=== PATIENT | female | born 1980 | race Caucasian/White ===

== ENCOUNTER 2018-02-05 04:26 | Emergency (ER) | payer BC ==
[2018-02-05 04:38] VITALS: BMI 26.6
[2018-02-05] MEDS ORDERED: SODIUM CHLORIDE 1,000 ML IV STA ×2 (04:45→06:05)
--- NOTE | 2018-02-05 05:00 | PDOC ---
History of Present Illness - General Chief Complaint: Nausea/Vomiting Stated Complaint: DIABETIC/VOMITING/SYNCOPY Time Seen by Provider: 02/05/18 04:35 - History of Present Illness Initial Comments: 02/05/18 05:00 The patient is a 37 year old female with history of type I DM who presents to the ED complaining of vomiting and syncope that began tonight around midnight. The patient states she was at work when she began to feel lightheaded. She subsequently developed nausea and had several episodes of nonbloody nonbilious vomiting. She states she sat down in a chair but then "passed out". Pt denies head trauma or injury. She states her blood sugar was normal when she checked this morning. However, she states that she did not use any of her humalog today and only took her Lantus in the morning. She denies eating anything today but states she had a kala david. The patient denies fever, chills, or recent illness. She denies abdominal pain, constipation, or diarrhea. She denies chest pain or shortness of breath. She does endorse mild headache, no blurred vision, numbness or tingling. She does endorse frequency of urination, denies dysuria or hematuria. Past History - Past Medical History Allergies/Adverse Reactions: Allergies Allergy/AdvReac Type Severity Reaction Status Date / Time No Known Drug Allergies Allergy Verified 02/05/18 04:36 Home Medications: Ambulatory Orders Diazepam [Valium] 5 mg PO ONCE 02/05/18 Insulin Glargine,Hum.rec.anlog [Lantus] 30 unit SQ AM 02/05/18 Insulin Glargine,Hum.rec.anlog [Lantus] 40 unit SQ HS 02/05/18 Venlafaxine HCl ER [Effexor Xr -] 150 mg PO DAILY 02/05/18 Anemia: No Asthma: No Cancer: No Cardiac Disorders: No CVA: No COPD: No CHF: No Dementia: No Diabetes: Yes (iddm) GI Disorders: No Disorders: No HTN: No Hypercholesterolemia: No Liver Disease: No Psychiatric Problems: Yes (anxiety/depression) Seizures: No Thyroid Disease: No - Surgical History Cardiac Surgery: Yes (RIGHT CATARCT 06/01/12) - Suicide/Smoking/Psychosocial Hx Smoking Status: No Smoking History: Never smoked Years of Tobacco Use: 8 Have you smoked in the past 12 months: No Number of Cigarettes Smoked Daily: 0 If you are a former smoker, when did you quit?: 10 YRS AGO Information on smoking cessation initiated: No Hx Alcohol Use: No Drug/Substance Use Hx: No Substance Use Type: None Hx Substance Use Treatment: No Review of Systems - Review of Systems Comments:: 02/05/18 05:01 "GENERAL/CONSTITUTIONAL: +Generalized weakness. No fever or chills. HEAD, EYES, EARS, NOSE AND THROAT: No change in vision. No ear pain or discharge. No sore throat. CARDIOVASCULAR: +Lightheadedness, LOC. No chest pain or shortness of breath. RESPIRATORY: No cough, wheezing, or hemoptysis. GASTROINTESTINAL: +Vomiting. No abdominal pain, diarrhea, or constipation. GENITOURINARY: No dysuria, frequency, or change in urination. MUSCULOSKELETAL: No joint or muscle swelling or pain. No neck or back pain. SKIN: No rash NEUROLOGIC: +Headache. No vertigo, or change in strength/sensation. ENDOCRINE: No increased thirst. No abnormal weight change. HEMATOLOGIC/LYMPHATIC: No anemia, easy bleeding, or history of blood clots. ALLERGIC/IMMUNOLOGIC: No hives or skin allergy. " *Physical Exam - Vital Signs Last Vital Signs Temp Pulse Resp BP Pulse Ox 98.1 F 113 H 20 133/88 96 02/05/18 04:36 02/05/18 04:36 02/05/18 04:36 02/05/18 04:36 02/05/18 04:36 - Physical Exam Comments: 02/05/18 05:02 "GENERAL: Awake, alert, and fully oriented, in no acute distress. HEAD: No signs of trauma EYES: PERRLA, EOMI, sclera anicteric, conjunctiva clear ENT: Auricles normal inspection, hearing grossly normal, nares patent, oropharynx clear without exudates. Moist mucosa NECK: Nontender, no stepoffs, Normal ROM, supple, no lymphadenopathy, JVD, or masses LUNGS: Breath sounds equal, clear to auscultation bilaterally. No wheezes, and no crackles HEART: Regular rate and rhythm, normal S1 and S2, no murmurs, rubs or gallops ABDOMEN: Soft, nontender, normoactive bowel sounds. No guarding, no rebound. No masses EXTREMITIES: Normal range of motion, no edema. No clubbing or cyanosis. No cords, erythema, or tenderness NEUROLOGICAL: Cranial nerves II through XII intact. 5/5 strength and sensation in all extremities, Normal speech, normal gait, normal cerebellar function SKIN: Warm, Dry, normal turgor, no rashes or lesions noted. " ED Treatment Course - LABORATORY CBC & Chemistry Diagram: 02/05/18 05:00 02/05/18 08:00 Medical Decision Making - Medical Decision Making 02/05/18 04:55 37 F with DM presenting to ED with vomiting and syncopal episode. Pt tachycardic in ED but afebrile, BP stable. Will evaluate for DKA/HHS. Pt with no EKG findings suspicious for cardiac syncope. Pt also with mild headache, likely 2/2 volume depletion. No red flags for meningitis or SAH. No history or clinical signs of head trauma. - Labs, ketones, VBG - UA - 1L NS bolus - Tylenol 02/05/18 06:06 Labs notable for glucose 500. Acetone 1+. AG 13. Pt likely with very mild DKA. 7u insulin IV and additional 1L of NS ordered. Will defer insulin gtt for now, as anion gap is almost completely closed. Will recheck lytes after insulin and IVF. Pt signed out to oncoming attending at 7AM, pending repeat labwork and re- evaluation. Case discussed in detail with oncoming Emergency Physician including history, physical exam and ancillary studies. Oncoming Emergency Physician has assumed care for the patient and will complete the evaluation and treatment. Patient is aware of the plan. *DC/Admit/Observation/Transfer Diagnosis at time of Disposition: Hyperglycemia - Discharge Dispostion Disposition: HOME Condition at time of disposition: Good - Referrals - Patient Instructions Printed Discharge Instructions: DI for Hyperglycemia -- Adult Additional Instructions: return to the ED for severe nausea and vomiting, lightheadness or dizziness, passing out, other new or worsening symptoms. Make sure that you follow up with your doctor, and that you take your insulin. - Post Discharge Activity
[2018-02-05] MEDS ORDERED: ACETAMINOPHEN 1000 MG/100 ML VIAL (NON FORMULARY) IVPB ONE (05:02)
[2018-02-05 05:13] LABS: BASO % 0.6 % (0-2.0); EOS % 0.1 % (0-4.5); HEMATOCRIT 40.2 % (32.4-45.2); HEMOGLOBIN 13.1 GM/dL (10.7-15.3); LYMPH % 9.8 % (8-40); MCH 27.5 pg (25.7-33.7); MCHC 32.7 g/dl (32.0-36.0); MEAN PLT VOLUME 8.7 fl (7.5-11.1); MONO % 4.4 % (3.8-10.2); NEUT % 85.1 % (42.8-82.8); PLATELET COUNT 291 K/MM3 (134-434); RBC 4.78 M/mm3 (3.60-5.2); RDW 13.4 % (11.6-15.6); VENOUS PH 7.34 (7.32-7.42); WHITE BLOOD COUNT 12.1 K/mm3 (4.0-10.0)
[2018-02-05 05:14] LABS: VENOUS PC02 42.9 mmHg (38-52); VENOUS PO2 33.4 mmHg (28-48)
[2018-02-05] MEDS ORDERED: ACETAMINOPHEN INJECTION 100 ML IVPB ONE (05:17)
[2018-02-05 05:38] LABS: ALBUMIN 4.3 g/dl (3.4-5.0); ANION GAP 13 (8-16); BILIRUBIN,TOTAL 1.4 mg/dL (0.2-1.0); BLOOD UREA NITROGEN 13 mg/dL (7-18); CALCIUM 9.3 mg/dL (8.5-10.1); CHLORIDE 96 mmol/L (98-107); CO2 24 mmol/L (21-32); POTASSIUM 4.6 mmol/L (3.5-5.1); SGOT/AST 10 U/L (15-37); SGPT/ALT 22 U/L (12-78); SODIUM 133 mmol/L (136-145); TOT PROT 8.2 g/dl (6.4-8.2)
[2018-02-05 05:39] LABS: ALK PHOS 107 U/L (45-117)
[2018-02-05 05:57] LABS: GLUCOSE,RANDOM 505 mg/dL (74-106)
[2018-02-05] MEDS ORDERED: INSULIN REGULAR HUMAN 100 UNITS/ML *VIAL IVPUSH ONE (06:04)
[2018-02-05 06:07] LABS: ACETONE SERUM POSITIVE SMALL 1+ (NEGATIVE)
[2018-02-05] MEDS ORDERED: INSULIN REGULAR HUMAN 100 UNITS/ML *VIAL ONE (06:11)
[2018-02-05] MEDS ORDERED: METOCLOPRAMIDE HCL INJECTION 10 MG/2 ML VIAL IVPB ONE (06:28)
[2018-02-05] MEDS ORDERED: METOCLOPRAMIDE HCL INJECTION 10 MG/2 ML VIAL ONE (06:41)
[2018-02-05] MEDS ORDERED: SODIUM CHLORIDE 0.9% 500 ML INFUS.BAG IV ONE (08:47)
[2018-02-05 10:13] LABS: URINE APPEARANCE CLOUDY; URINE BILIRUBIN NEGATIVE (<2.0 mg/dL); URINE COLOR LTYELLOW; URINE GLUCOSE (UA) 3+ (NEGATIVE); URINE KETONE 2+ (NEGATIVE); URINE LEUK ESTERASE NEGATIVE (NEGATIVE); URINE NITRITE NEGATIVE (NEGATIVE); URINE PROTEIN NEGATIVE (NEGATIVE); URINE UROBILINOGEN NEGATIVE mg/dL (0.2-1.0)
[2018-02-05 10:14] LABS: BLOOD UREA NITROGEN 10 mg/dL (7-18)
[2018-02-05 10:22] LABS: HCG,QUALITATIVE URINE NEGATIVE
[2018-02-05 10:37] LABS: ALBUMIN 3.6 g/dl (3.4-5.0); ALK PHOS 89 U/L (45-117); ANION GAP 9 (8-16); BILIRUBIN,TOTAL 1.3 mg/dL (0.2-1.0); CALCIUM 8.2 mg/dL (8.5-10.1); CHLORIDE 102 mmol/L (98-107); CO2 23 mmol/L (21-32); CREATININE 0.7 mg/dL (0.55-1.02); GLUCOSE,RANDOM 254 mg/dL (74-106); POTASSIUM 4.3 mmol/L (3.5-5.1); SGOT/AST 9 U/L (15-37); SGPT/ALT 17 U/L (12-78); SODIUM 134 mmol/L (136-145); TOT PROT 7.1 g/dl (6.4-8.2)
--- NOTE | 2018-02-05 11:14 | PDOC ---
*Physical Exam - Vital Signs Last Vital Signs Temp Pulse Resp BP Pulse Ox 98.1 F 96 H 16 91/55 99 02/05/18 04:36 02/05/18 07:54 02/05/18 07:54 02/05/18 07:54 02/05/18 07:54 ED Treatment Course - LABORATORY CBC & Chemistry Diagram: 02/05/18 05:00 02/05/18 08:00 - ADDITIONAL ORDERS Additional order review: Laboratory Results 02/05/18 02/05/18 02/05/18 10:04 08:45 08:00 VBG pH POC VBG pCO2 POC VBG pO2 Mixed VBG HCO3 Sodium 134 L Potassium 4.3 Chloride 102 Carbon Dioxide 23 Anion Gap 9 BUN 10 Creatinine 0.7 Creat Clearance w eGFR > 60 POC Glucometer [phone] Random Glucose 254 H Calcium 8.2 L Total Bilirubin 1.3 H AST 9 L ALT 17 Alkaline Phosphatase 89 Creatine Kinase Troponin I Total Protein 7.1 Albumin 3.6 Lipase Urine Color Ltyellow Urine Appearance Cloudy Urine pH 5.0 Ur Specific Prentice 1.025 Urine Protein Negative Urine Glucose (UA) 3+ H Urine Ketones 2+ H Urine Blood Negative Urine Nitrite Negative Urine Bilirubin Negative Urine Urobilinogen Negative Ur Leukocyte Esterase Negative Urine HCG, Qual Negative Acetone, Qual 02/05/18 02/05/18 02/05/18 05:00 05:00 05:00 VBG pH 7.34 POC VBG pCO2 42.9 POC VBG pO2 33.4 Mixed VBG HCO3 22.5 Sodium 133 L Potassium 4.6 Chloride 96 L Carbon Dioxide 24 Anion Gap 13 BUN 13 Creatinine 1.0 Creat Clearance w eGFR > 60 POC Glucometer Random Glucose 505 H* Calcium 9.3 Total Bilirubin 1.4 H D AST 10 L ALT 22 Alkaline Phosphatase 107 Creatine Kinase Troponin I Total Protein 8.2 Albumin 4.3 Lipase 56 L Urine Color Urine Appearance Urine pH Ur Specific Prentice Urine Protein Urine Glucose (UA) Urine Ketones Urine Blood Urine Nitrite Urine Bilirubin Urine Urobilinogen Ur Leukocyte Esterase Urine HCG, Qual Acetone, Qual Positive small 1+ H 02/05/18 05:00 VBG pH POC VBG pCO2 POC VBG pO2 Mixed VBG HCO3 Sodium Potassium Chloride Carbon Dioxide Anion Gap BUN Creatinine Creat Clearance w eGFR POC Glucometer Random Glucose Calcium Total Bilirubin AST ALT Alkaline Phosphatase Creatine Kinase 45 Troponin I < 0.02 Total Protein Albumin Lipase Urine Color Urine Appearance Urine pH Ur Specific Prentice Urine Protein Urine Glucose (UA) Urine Ketones Urine Blood Urine Nitrite Urine Bilirubin Urine Urobilinogen Ur Leukocyte Esterase Urine HCG, Qual Acetone, Qual 02/05/18 02/05/18 08:45 05:00 RBC 4.78 MCV 84.0 MCHC 32.7 RDW 13.4 MPV 8.7 Neutrophils % 85.1 H D Lymphocytes % 9.8 D Monocytes % 4.4 Eosinophils % 0.1 D Basophils % 0.6 POC Glucometer [phone] - Medications Given in the ED: ED Medications Discontinued Medications Generic Name Dose Route Start Last Admin Trade Name Freq PRN Reason Stop Dose Admin Acetaminophen 1,000 mg 02/05/18 05:02 02/05/18 05:28 Ofirmev Injection - IVPB 02/05/18 05:03 1,000 mg ONCE ONE Administration Sodium Chloride 1,000 mls @ 1,000 mls/hr 02/05/18 04:45 02/05/18 05:10 Normal Saline - IV 02/05/18 05:44 1,000 mls/hr ASDIR STA Administration Sodium Chloride 1,000 mls @ 1,000 mls/hr 02/05/18 06:05 02/05/18 06:16 Normal Saline - IV 02/05/18 07:04 1,000 mls/hr ASDIR STA Administration Insulin Human Regular 7 units 02/05/18 06:04 02/05/18 06:15 Novolin R Vial *For Ivpush Or Iv Drip Only* IVPUSH 02/05/18 06:05 7 unit ONCE ONE Administration Metoclopramide HCl 10 mg 02/05/18 06:28 02/05/18 06:45 Reglan Injection - IVPB 02/05/18 06:29 10 mg ONCE ONE Administration Sodium Chloride 1,000 ml 02/05/18 08:47 02/05/18 09:01 Normal Saline - IV 02/05/18 08:48 1,000 ml ONCE ONE Administration Medical Decision Making - Medical Decision Making 02/05/18 11:11 Pt signed out by Dr. Marino pending a repeat chemistry to evaluate for DKA after Iv insulin and hydration. Labs show no gap and improved hyperglycemia. Will discharge home. *DC/Admit/Observation/Transfer Diagnosis at time of Disposition: Hyperglycemia - Discharge Dispostion Disposition: HOME Condition at time of disposition: Good Decision to Admit order: No - Referrals - Patient Instructions Printed Discharge Instructions: DI for Hyperglycemia -- Adult Additional Instructions: return to the ED for severe nausea and vomiting, lightheadness or dizziness, passing out, other new or worsening symptoms. Make sure that you follow up with your doctor, and that you take your insulin. - Post Discharge Activity
[2018-02-05 11:16] VITALS: BP 98/72; PULSE 93; TEMP 98.6
--- NOTE | 2018-02-05 13:26 | EKG ---
Test Reason : Blood Pressure : / mmHG Vent. Rate : 105 BPM Atrial Rate : 105 BPM P-R Int : 168 ms QRS Dur : 088 ms QT Int : 342 ms P-R-T Axes : 074 077 037 degrees QTc Int : 452 ms SINUS TACHYCARDIA OTHERWISE NORMAL ECG WHEN COMPARED WITH ECG OF 21-MAY-2012 16:35, NO SIGNIFICANT CHANGE WAS FOUND Confirmed by COOPER BROWN MD ([id number]) on 02/05/2018 1:25:43 PM Referred By: Confirmed By:COOPER BROWN MD
== END 2018-02-05 11:22 | disposition home or self-care (01) ==
LOC: JER 04:26
PROC: 3E033VG Introduction of Insulin into Peripheral Vein, Percutaneous Approach (ICD-10-PCS; principal; 2018-02-05)
PROC: 3E033GC Introduction of Other Therapeutic Substance into Peripheral Vein, Percutaneous Approach (ICD-10-PCS; 2018-02-05)
PROC: 3E0337Z Introduction of Electrolytic and Water Balance Substance into Peripheral Vein, Percutaneous Approach (ICD-10-PCS; 2018-02-05)
PROC: 3E033NZ Introduction of Analgesics, Hypnotics, Sedatives into Peripheral Vein, Percutaneous Approach (ICD-10-PCS; 2018-02-05)
DX: E10.65 Type 1 diabetes mellitus with hyperglycemia (principal); Z79.4 Long term (current) use of insulin
CPT/HCPCS: 36415; 80053; 81003; 82009; 82550; 82803; 82962; 83690; 84484; 84703; 85025; 87086; 93005; 93010; 99282-25; J0131; J7030